=== PATIENT | female | born 1970 | race Caucasian/White ===

== ENCOUNTER 2018-06-22 11:21 | Emergency (ER) | payer BC ==
[2018-06-22] MEDS ORDERED: HYDROmorphone INJ* 2 MG/ML CARPUJECT SYRINGE IV SLOW PU ONE (11:57)
[2018-06-22] MEDS ORDERED: NS 0.9% 1000 ML** 1,000 ML IV ONE (11:57)
[2018-06-22] MEDS ORDERED: Ondansetron INJ* 2 MG/ML VIAL IV ONE (11:57)
[2018-06-22] MEDS ORDERED: HYDROmorphone INJ1* 1 MG/ML SYRINGE ONE ×2 (12:01→12:11)
--- NOTE | 2018-06-22 12:10 | ED ---
Upper Extremity Pain - HPI Summary HPI Summary: This pt is a 47 y/o female presenting to [facility] c/o right shoulder pain s/p fall today. Pt reports she was playing hockey this morning when she fell at around 10 :30. Denies head strike or LOC. She additionally notes right hand numbness. Pt is unable to move her shoulder secondary to pain, she believes it is dislocated. Denies chest pain, SOB, nausea, vomiting. Pt had right shoulder rotator cuff surgery with Dr. Cisse in 2002. Pt has hx of left shoulder dislocation x8. Allergies: tetracycline. - History of Current Complaint Chief Complaint: EDExtremityUpper Stated Complaint: POSS DISLOCATED SHOULDER Time Seen by Provider: 06/22/18 11:42 Hx Obtained From: Patient Mechanism Of Injury: Direct Blow, Fall From A Standing Position Onset/Duration: Started Hours Ago - at 10:30, Still Present Timing: Constant, Lasting Hours Severity Currently: Severe Pain Location: Shoulder - right Aggravating Factor(s): Movement Alleviating Factor(s): Nothing Associated Signs & Symptoms: Positive: Numbness/Tingling - numbness right hand. Negative: Fever, Chest Pain, SOB, Nausea, Vomiting - Allergies/Home Medications Allergies/Adverse Reactions: Allergies Allergy/AdvReac Type Severity Reaction Status Date / Time tetracycline Allergy Swelling Verified 06/22/18 11:36 Of Face,Lips,& Throat PMH/Surg Hx/FS Hx/Imm Hx Endocrine/Hematology History: Denies: Hx Diabetes Cardiovascular History: Denies: Hx Hypertension, Hx Pacemaker/ICD Sensory History: Denies: Hx Hearing Aid Psychiatric History: Denies: Hx Panic Disorder - Cancer History Hx Chemotherapy: No Hx Radiation Therapy: No - Surgical History Surgery Procedure, Year, and Place: APPENDECTOMY. LT SHOULDER SURGERY. RT SHOULDER ROTATOR CUFF Infectious Disease History: No Infectious Disease History: Denies: History Other Infectious Disease, Traveled Outside the [place] in Last 30 Days - Family History Known Family History: Positive: Hypertension - father Family History: father with stroke - Social History Alcohol Use: Weekly Substance Use Type: Reports: None Smoking Status (MU): Never Smoked Tobacco Review of Systems Negative: Fever, Chills Negative: Chest Pain Negative: Shortness Of Breath Negative: Vomiting, Nausea Musculoskeletal: Other - POS: right shoulder pain Positive: Numbness - right hand All Other Systems Reviewed And Are Negative: Yes Physical Exam - Summary Physical Exam Summary: Appearance: Well appearing, no pain distress Skin: warm, dry, reflects adequate perfusion Head/face: normal Eyes: EOMI, ROSCOE ENT: normal Neck: supple, nontender Respiratory: CTA, breath sounds present Cardiovascular: RRR, pulses symmetrical Abdomen: nontender, soft Musculoskeletal: tenderness and deformity on right shoulder. Restricted ROM secondary to pain. Neurovascular intact. Neuro: normal, sensory motor intact, A&Ox3 Triage Information Reviewed: Yes Vital Signs On Initial Exam: Initial Vitals Temp Pulse Resp BP Pulse Ox 96.5 F 65 20 151/114 100 06/22/18 11:27 06/22/18 11:27 06/22/18 11:27 06/22/18 11:27 06/22/18 11:27 Vital Signs Reviewed: Yes Procedures - Procedure Summary Procedure Summary: Conscious Sedation Procedure: Obtained consent from the pt. Administered 50mg propofol at 12:36. Pt tolerated the procedure well. - Joint Reduction Right shoulder Joint Reduction Site: shoulder (R) Conscious Sedation: Yes - with 50 mg propofol Reduction Attempts: 1 Pre-Procedure NV Exam: Yes Post Joint Reduction Film: joint reduced Diagnostics - Vital Signs Vital Signs Temp Pulse Resp BP Pulse Ox 06/22/18 12:08 16 06/22/18 11:27 96.5 F 65 20 151/114 100 - Laboratory Lab Statement: Any lab studies that have been ordered have been reviewed, and results considered in the medical decision making process. - Radiology Right Shoulder XR Radiology Interpretation Completed By: Radiologist Summary of Radiographic Findings: IMPRESSION: Anterior inferior dislocation of the right humeral head. Dr. Macias has reviewed this report. R shoulder XR POST REDUCTION Radiology Interpretation Completed By: Radiologist Summary of Radiographic Findings: IMPRESSION: Reduction of anterior inferior dislocation of the right humeral head. Dr. Macias has reviewed this report. Re-Evaluation - Re-Evaluation First Eval Re-Evaluation Time: 12:40 Comment: Reduction of right shoulder procedure performed. Second Eval Re-Evaluation Time: 13:02 Change: Improved Comment: Right shoulder is back in place. Course/Dx - Course Assessment/Plan: Pt is a 47 y/o female who presents with right shoulder pain s/ p fall today. Pt reports she was playing hockey this morning when she fell at around 10:30. Hx right shoulder rotator cuff surgery with Dr. Cisse in 2003 and of left shoulder dislocation x8. In the ED course the pt was given IV fluids, Dilaudid, Zofran. Right shoulder XR shows anterior inferior dislocation of the right humeral head. Conscious sedation consent obtained and administered 50 mg propofol. Pt tolerated well. Right shoulder was reduced. See procedure note. Pt tolerated procedure well. Pre and post procedure pt is neurovascular intact. Post reduction XR shows reduction of anterior inferior dislocation of the right humeral head. Pt will be discharged home with follow up from orthopedics. She was given a prescription for motrin. She is instructed to return to the ED for any worsening or new symptoms. - Diagnoses Differential Diagnosis/HQI/PQRI: Positive: Fracture (Closed), Sprain, Other - dislocation Provider Diagnoses: Shoulder dislocation Discharge - Sign-Out/Discharge Documenting (check all that apply): Patient Departure - Discharge home - Discharge Plan Condition: Stable Disposition: HOME Prescriptions: Ibuprofen TAB* [Motrin TAB* 600 MG] 600 mg PO Q8H PRN #20 tab MDD 3 PRN Reason: Pain Patient Education Materials: Shoulder Dislocation (ED), Procedural Sedation (ED ) Referrals: Armando Barrios MD [Medical Doctor] - Bernie Tierney MD [Primary Care Provider] - Additional Instructions: Please follow up with orthopedist, Dr. Barrios, in 3 days. RETURN TO THE ED FOR ANY WORSENING OR NEW SYMPTOMS. - Billing Disposition and Condition Condition: STABLE Disposition: Home - Attestation Statements Document Initiated by Corineibe: Yes Documenting Scribe: Rachael Mchugh Provider For Whom Reema is Documenting (Include Credential): Young Macias MD Scribe Attestation: Rachael Mann scribed for Young Macias MD on 06/22/18 at 1333. Scribe Documentation Reviewed: Yes Provider Attestation: The documentation as recorded by the Rachael montano accurately reflects the service I personally performed and the decisions made by , Young Macias MD Status of Scribe Document: Viewed
[2018-06-22] MEDS ORDERED: Propofol* 500 MG/50 ML BTL ONE (12:23)
[2018-06-22 13:51] VITALS: BP 123/81
== END 2018-06-22 13:50 | disposition home or self-care (01) ==
LOC: ED 11:21
DX: S43.004A Unspecified dislocation of right shoulder joint, initial encounter (principal); M25.511 Pain in right shoulder; W19.XXXA Unspecified fall, initial encounter; Y92.9 Unspecified place or not applicable
CPT/HCPCS: 23650; 96361; 96374; 96375; 99284; J1170; J2405; J2704